=== PATIENT | male | born 1950 | race Hispanic/Latino ===

== ENCOUNTER → 2018-06-05 | Outpatient (CLI) | payer MEDICARE ==
--- NOTE | 2018-06-06 08:15 | Diagnostic Imaging Report ---
EXAM: Modified barium swallow INDICATION: Aspiration COMPARISON: None FINDINGS: This examination was conducted in conjunction with speech pathologist. Patient was given, by mouth, liquids and solids of various consistencies. No premature spillage to the vallecula or piriform sinus. Laryngeal penetration and aspiration was noted with thin liquid. Trace vallecular residue was noted after thin liquids. IMPRESSION: Laryngeal penetration and aspiration of the exam. Please see speech pathology report for detailed description and recommendations.> Signed by: Dr. Jonathan Jeffrey M.D. on 06/06/2018 8:11 AM
== END ==
LOC: DX 12:41
PROVIDERS: ATTEND Internal Medicine Critical Care Medicine
DX: J69.0 Pneumonitis due to inhalation of food and vomit (principal)
CPT/HCPCS: 74230

== ENCOUNTER 2018-07-08 11:43 | Outpatient (RCR) | payer MEDICARE, OTHER | END 2018-07-10 | LOC: ST 11:43 | PROVIDERS: ATTEND Internal Medicine Critical Care Medicine | DX: R13.13 Dysphagia, pharyngeal phase (principal); K21.9 Gastro-esophageal reflux disease without esophagitis | CPT/HCPCS: 92526 ×10; 92610; 97139; G8996 ×2; G8997 ×2 ==

== ENCOUNTER 2018-07-21 11:49 | Outpatient (RCR) | payer MEDICARE, OTHER ==
--- NOTE | 2018-07-20 11:23 | NUR ---
ST NOTE: Pt has apt today, moved apt to 07-21-18 at 1200, handoff to Fabiola Donaldson, [id number].
== END 2018-08-10 ==
LOC: ST 11:49
PROVIDERS: ATTEND Internal Medicine Critical Care Medicine
DX: T17.920A Food in respiratory tract, part unspecified causing asphyxiation, initial encounter (principal)
CPT/HCPCS: 97139

== ENCOUNTER → 2018-07-22 | Outpatient (CLI) | payer MEDICARE, OTHER ==
--- NOTE | 2018-07-22 14:36 | Diagnostic Imaging Report ---
ADDENDUM #1 RADIATION DETAILS: Radiation dose: 22.18 mGy Dose area product (DAP): 2.081 mGycm2 Signed by: Dr. Dex Conte MD on 08/12/2018 5:16 PM ORIGINAL REPORT EXAM: Modified barium swallow INDICATION: Dysphagia COMPARISON: Modified barium swallow 06/05/18. FINDINGS: This examination was conducted in conjunction with speech pathologist. Patient was given, by mouth, liquids of various consistencies with fluoroscopic sequences. Trace laryngeal penetration and aspiration was noted with thin liquids. Degree of aspiration is decreased compared to prior study on 06/05/18. IMPRESSION: Trace laryngeal penetration and aspiration as above, decreased compared to prior study. Please see speech pathology report for detailed description and recommendations. Signed by: Dr. Dex Conte MD on 07/22/2018 2:33 PM
== END ==
LOC: DX 11:56
PROVIDERS: ATTEND Internal Medicine Critical Care Medicine
DX: R13.13 Dysphagia, pharyngeal phase (principal); K21.9 Gastro-esophageal reflux disease without esophagitis
CPT/HCPCS: 74230; 92611; G8996; G8997; G8998

== ENCOUNTER 2019-09-22 16:24 | Observation (INO) | payer MEDICARE, OTHER ==
[~2019-09-22] VITALS: Ht 182.9 cm; Wt 94.3 kg
--- OUTSIDE RECORDS SUMMARY | 2019-09-22 16:27 | XMS REPORT ---
Author Author [facility] Address Unknown Phone Unavailable Care Team Providers Care And Drying Supervisor Cooking Casing Name Role Phone MIO CHAPMAN Unavailable Unavailable Problems This patient has no known problems. Allergies, Adverse Reactions, Alerts This patient has no known allergies or adverse reactions. Medications This patient has no known medications. Encounters Start Date/Time End Date/Time Encounter Type Admission Type Attending Clinicians Care Facility Care Department Encounter ID 2019-03-22 13:23:00 2019-03-22 13:23:00 Outpatient [id number] 2018-12-23 11:31:00 2018-12-23 11:31:00 [id number] Results Test Description Test Time Test Comments Text Results Atomic Results Result Comments MODIFIED [place] SWALLOW 2018-07-22 14:25:00 [place] [address] Patient Name: HOANG FRANCIS MR #: [id number] : 1950 Age/Sex: 67/M Req #: [id number] Adm Physician: Ordered by: MIO CHAPMAN MD Report #: [id number] Location: DX Room/Bed: Procedure: [id number] DX/MODIFIED BA. SWALLOW Exam Date: 07/22/18 Exam Time: 1231 REPORT STATUS: Signed ADDENDUM #1 RADIATION DETAILS: Radiation dose: 22.18 mGy Dose area product (DAP): 2.081 mGycm2 Signed by: Dr. Alex Duncan MD on 08/12/2018 5:16 PM ORIGINAL REPORT EXAM: Modified barium swallow INDICATION: Dysphagia COMPARISON: Modified barium swallow 06/05/18. FINDINGS: This examination was conducted in conjunction with speech pathologist. Patient was given, by mouth, liquids of various consistencies with fluoroscopic sequences. Trace laryngeal penetration and aspiration was noted with thin liquids. Degree of aspiration is decreased compared to prior study on 06/05/18. IMPRESSION: Trace laryngeal penetration and aspiration as above, decreased compared to prior study. Please see speech pathology report for detailed description and recommendations. Signed by: Dr. Alex Duncan MD on 07/22/2018 2:33 PM Dictated By: ALEX DUNCAN MD [id number] Transcribed By: DANY on 07/22/18 1431 COPY TO: MIO CHAPMAN MD MODIFIED BA. SWALLOW 2018-06-06 08:10:00 [place] [address] Patient Name: HOANG FRANCIS MR #: [id number] : 1950 Age/Sex: 67/M Req #: [id number] Adm Physician: Ordered by: MIO CHAPMAN MD Report #: [id number] Location: DX Room/Bed: Procedure: [id number] DX/MODIFIED BA. SWALLOW Exam Date: Exam Time: REPORT STATUS: Signed EXAM: Modified barium swallow INDICATION: Aspiration COMPARISON: None FINDINGS: This examination was conducted in conjunction with speech pathologist. Patient was given, by mouth, liquids and solids of various consistencies. No premature spillage to the vallecula or piriform sinus. Laryngeal penetration and aspiration was noted with thin liquid. Trace vallecular residue was noted after thin liquids. IMPRESSION: Laryngeal penetration and aspiration of the exam. Please see speech pathology report for detailed description and recommendations.> Signed by: Dr. Seymour Jeffrey M.D. on 06/06/2018 8:11 AM Dictated By: SEYMOUR JEFFREY MD 0 Transcribed By: DANY on 06/06/18810 COPY TO: MIO CHAPMAN MD
[2019-09-22] MEDS ORDERED: MECLIZINE HCL 12.5 MG TAB PO ONE (17:00)
[2019-09-22] MEDS ORDERED: ASPIRIN 81 MG CHEW TAB PO ONE ×2 (17:00→18:30)
[2019-09-22 17:25] LABS: BASOPHILS % 0.4 % (0.0-1.0); EOSINOPHILS # (AUTO) 0.3 (0.0-0.4); EOSINOPHILS % 5.1 % (0.0-6.0); HEMATOCRIT 41.8 % (38.2-49.6); LYMPHOCYTES # (AUTO) 1.1 (1.0-3.2); LYMPHOCYTES % 19.6 % (18.0-39.1); MEAN CORPUSCULAR HEMOGLOBIN 28.7 pg (28-32); MEAN CORPUSCULAR HGB CONC 33.5 g/dL (31-35); MEAN CORPUSCULAR VOLUME 85.8 fL (81-99); MONOCYTES # (AUTO) 0.4 (0.2-0.8); MONOCYTES % 7.2 % (4.4-11.3); NEUTROPHILS # (AUTO) 3.8 (2.1-6.9); NEUTROPHILS % 67.3 % (38.7-80.0); PLATELET COUNT 116 x10e3/uL (140-360); RED BLOOD COUNT 4.87 x10e6/uL (4.3-5.7); RED CELL DISTRIBUTION WIDTH 13.7 % (11.7-14.4)
[2019-09-22 17:34] LABS: INR 1.01; PROTHROMBIN TIME 13.9 seconds (11.9-14.5)
[2019-09-22 17:35] LABS: PARTIAL THROMBOPLASTIN TIME 34.5 seconds (23.8-35.5)
[2019-09-22 17:41] LABS: ALANINE AMINOTRANSFERASE 31 IU/L (0-55); ALBUMIN 3.9 g/dL (3.5-5.0); ALBUMIN/GLOBULIN RATIO 1.3 (0.8-2.0); ALKALINE PHOSPHATASE 73 IU/L (40-150); BLOOD UREA NITROGEN 25 mg/dL (7-26); BUN/CREATININE RATIO 22 (6-25); CALCIUM 9.3 mg/dL (8.4-10.2); CARBON DIOXIDE 21 mmol/L (22-29); CHLORIDE 104 mmol/L (98-107); CREATINE KINASE 108 IU/L (30-200); CREATININE, SERUM 1.15 mg/dL (0.72-1.25); EST GLOMERULAR FILTRATION RATE > 60 ML/MIN (60-); GLUCOSE 231 mg/dL (74-118); SODIUM 138 mmol/L (136-145)
--- NOTE | 2019-09-22 17:41 | Diagnostic Imaging Report ---
History:Headache, double vision Comparison studies: None Technique: Axial images were obtained from the skull base to the vertex. Coronal and sagittal images reconstructed from the axial data. Dose modulation, iterative reconstruction, and/or weight based adjustment of the mA/kV was utilized to reduce the radiation dose to as low as reasonably achievable. Intravenous contrast: None Findings: Scalp/skull: No abnormalities. Extra-axial spaces: No masses. No fluid collections. Brain sulci: Mildly prominent. Ventricles: Mild compensatory dilatation. No hydrocephalus. Parenchyma: Subtle hypodensities in the supratentorial white matter are small vessel ischemic changes. No masses, hemorrhage, acute or chronic cortical vascular insults. Sellar/suprasellar region: No abnormalities. Craniocervical junction: Patent foramen magnum. No Chiari 1 malformation. Incidental findings: Atherosclerotic calcifications in the carotid siphons and in the vertebral arteries. Mildly atrophic optic chiasm Impression: No acute abnormalities. Chronic findings: 1. Mild generalized volume loss. 2. Mild supratentorial white matter small vessel ischemic changes. Signed by: Dr. Juan Menendez M.D. on 09/22/2019 5:38 PM
--- NOTE | 2019-09-22 18:11 | Diagnostic Imaging Report ---
EXAMINATION: CHEST SINGLE (PORTABLE) INDICATION: Pain. COMPARISON: None FINDINGS: TUBES and LINES: None. LUNGS: Lungs are not well inflated. Bibasilar atelectasis. PLEURA: No pleural effusion or pneumothorax. HEART AND MEDIASTINUM: Cardiac size is mildly enlarged. There are atherosclerotic calcifications within the aorta. BONES AND SOFT TISSUES: No acute osseous lesion. Soft tissues are unremarkable. UPPER ABDOMEN: No free air under the diaphragm. IMPRESSION: Bibasilar atelectasis. Signed by: Dr. Justina Sandoval M.D. on 09/22/2019 6:08 PM
[2019-09-22] MEDS ORDERED: ONDANSETRON HCL INJ 2MG/ML 2ML 2 MG/ML VIAL IV PRN (18:30)
[2019-09-22] MEDS ORDERED: DEXTROSE 50% SYRINGE 50 ML IV PRN (18:30)
[2019-09-22] MEDS ORDERED: FOLIC ACID MDV 1 MG in SODIUM CHLORIDE 0.9% 50ML 50 ML IV SCH (20:00)
[2019-09-22] MEDS ORDERED: MECLIZINE HCL 12.5 MG TAB ONE (21:11)
[2019-09-22] MEDS: SODIUM CHLORIDE 0.9% 1000ML 1,000 ML IV SCH (21:15)
[2019-09-22 21:22] VITALS: BP 164/79
[2019-09-22 21:25] VITALS: BP 164/79
[2019-09-22] MEDS: INSULIN REGULAR, HUMAN 100 UNIT/1 ML 3ML VIAL SQ SCH (22:03)
[2019-09-23] VITALS (10 sets, daily range): BP systolic 113–160; BP diastolic 61–88
[2019-09-23] MEDS: SODIUM CHLORIDE 0.9% 1000ML 1,000 ML IV SCH ×2 (02:29→05:06)
[2019-09-23 05:01] LABS: BASOPHILS % 0.5 % (0.0-1.0); EOSINOPHILS # (AUTO) 0.3 (0.0-0.4); EOSINOPHILS % 5.7 % (0.0-6.0); HEMATOCRIT 42.1 % (38.2-49.6); LYMPHOCYTES # (AUTO) 1.5 (1.0-3.2); LYMPHOCYTES % 25.9 % (18.0-39.1); MEAN CORPUSCULAR HEMOGLOBIN 28.6 pg (28-32); MEAN CORPUSCULAR HGB CONC 33.3 g/dL (31-35); MEAN CORPUSCULAR VOLUME 85.9 fL (81-99); MONOCYTES # (AUTO) 0.5 (0.2-0.8); MONOCYTES % 9.1 % (4.4-11.3); NEUTROPHILS # (AUTO) 3.5 (2.1-6.9); NEUTROPHILS % 58.6 % (38.7-80.0); PLATELET COUNT 122 x10e3/uL (140-360); RED CELL DISTRIBUTION WIDTH 13.7 % (11.7-14.4)
[2019-09-23 05:23] LABS: ALANINE AMINOTRANSFERASE 29 IU/L (0-55); ALBUMIN 3.6 g/dL (3.5-5.0); ALBUMIN/GLOBULIN RATIO 1.2 (0.8-2.0); ALKALINE PHOSPHATASE 76 IU/L (40-150); ANION GAP 13.1 mmol/L (8-16); BLOOD UREA NITROGEN 23 mg/dL (7-26); BUN/CREATININE RATIO 21 (6-25); CALCIUM 9.4 mg/dL (8.4-10.2); CARBON DIOXIDE 25 mmol/L (22-29); CHLORIDE 106 mmol/L (98-107); CREATININE, SERUM 1.08 mg/dL (0.72-1.25); EST GLOMERULAR FILTRATION RATE > 60 ML/MIN (60-); GLUCOSE 147 mg/dL (74-118); PHOSPHORUS 3.5 MG/DL (2.3-4.7); POTASSIUM 4.1 mmol/L (3.5-5.1); SODIUM 140 mmol/L (136-145)
[2019-09-23 06:06] LABS: CREATINE KINASE MB 4.3 ng/mL (0-5.0)
--- NOTE | 2019-09-23 07:00 | NUR ---
BEDSIDE SHIFT REPORT RECEIVED FROM THE PREVIOUS SHIFT RN. EDUCATED PATIENT ABOUT FALL PRECAUTIONS. CALL LIGHT IN EASY REACH. INSTRUCTED PATIENT TO USE CALL LIGHT FOR ANY NEEDS. PATIENT VERBALIZE UNDERSTANDING. BED IS LOW, WHEELS LOCKED, SIDE RAILS UP X2 FOR SAFETY. PT DENIES NEEDS AT THIS TIME
[2019-09-23] MEDS: INSULIN REGULAR, HUMAN 100 UNIT/1 ML 3ML VIAL SQ SCH ×4 (07:30→21:00)
[2019-09-23 07:54] LABS: PLATELET ESTIMATE MODERATELY DECREASED
[2019-09-23 07:55] LABS: PLATELET MORPHOLOGY COMMENT FEW LARGE
[2019-09-23] MEDS: ASPIRIN 81 MG ENTERIC COATED PO SCH (09:17)
[2019-09-23] MEDS ORDERED: FENOFIBRATE145 MG PO (09:39)
[2019-09-23] MEDS ORDERED: LOSARTAN POTASS25 MG PO (09:41)
[2019-09-23] MEDS ORDERED: HYDROCHLOROTHIA25 MG PO (09:41)
[2019-09-23] MEDS ORDERED: VICTOZA 2-0.6 MG/0.1 SQ (09:41)
[2019-09-23] MEDS ORDERED: GABAPENTIN300 MG PO (09:42)
[2019-09-23] MEDS ORDERED: FLOMAX0.4 MG PO (09:42)
[2019-09-23] MEDS ORDERED: HUMULIN N100 UNITS/ SQ (09:44)
[2019-09-23] MEDS ORDERED: NOVOLIN N100 UNIT/1 SQ (09:44)
[2019-09-23] MEDS ORDERED: IPRATROPIU0.2 MG/1 M NEB (09:45)
[2019-09-23] MEDS ORDERED: IPRATROPIUM BROMIDE 0.02% 2.5 ML NEB NEB PRN (10:30)
[2019-09-23] MEDS: GABAPENTIN 300 MG CAP PO SCH (13:28)
[2019-09-23] MEDS: TAMSULOSIN HCL 0.4 MG CAP PO SCH (13:28)
[2019-09-23] MEDS: FENOFIBRATE 145 MG TAB PO SCH (13:30)
[2019-09-23 14:39] LABS: CREATINE KINASE 90 IU/L (30-200)
[2019-09-23 14:55] LABS: CREATINE KINASE MB < 1.00 ng/mL (0-4.3)
--- NOTE | 2019-09-23 15:20 | Diagnostic Imaging Report ---
EXAMINATION: MRI of the brain and orbits without contrast. HISTORY:Headaches, diplopia COMPARISON:Head CT 09/22/2019 TECHNIQUE: Brain: Sagittal T2; axial DWI, FLAIR, T1-IR. Orbits: Axial and coronal T1 coronal T2. High resolution coronal T2FS and STIR BRAIN MRI FINDINGS: Brain signal intensity: Few scattered and mildly confluent periventricular and colunga radiata as well as pontine white matter T2 and FLAIR hyperintense foci, most likely nonspecific chronic microvascular disc changes. Tiny chronic lacunar infarct in the head of the right caudate nucleus Vessels: Expected flow voids present in the major arteries and dural sinuses. Possible flow void versus CSF pulsation artifact within the right sylvian fissure is noted. Brain volume: Within normal limits for age. Ventricles: Normal size, shape, and position. Craniocervical junction: Normal. Paranasal and mastoid sinuses: Clear ORBITS MRI FINDINGS: Globes: Normal Optic nerves: Normal size. Small optic chiasm, likely age-related. Orbital fat: Normal. Extraocular muscles: Normal. Preseptal soft tissues: Normal. Lacrimal glands: Normal. Pituitary gland: No enlargement. Cavernous sinuses: Normal. Superior ophthalmic veins: No enlargement. IMPRESSION: 1. Mildly matter chronic microvascular ischemic changes. 2. Small chronic lacunar infarct in the head of the right common renal pelvis. 3. No orbital abnormalities. Signed by: Dr. Shahida Floyd M.D. on 09/23/2019 3:17 PM
[2019-09-23] MEDS: NPH, HUMAN INSULIN ISOPHANE 100 UNIT/1 ML 3ML VIAL SQ SCH (21:00)
[2019-09-24] VITALS (9 sets, daily range): BP systolic 144–169; BP diastolic 69–92
--- NOTE | 2019-09-24 06:24 | Consultation ---
DATE OF CONSULTATION: 09/24/2019 HISTORY OF PRESENT ILLNESS: The patient is a 69-year-old male, admitted to the hospital with diplopia and left temporal headache. He says he feels better today, but still has some pain in the left hoahaoism area. There was concern for temporal arteritis. Erythrocyte sedimentation rate is normal. PAST MEDICAL HISTORY: Significant for diabetes, hyperlipidemia, hypertension, and osteoarthritis. PAST SURGICAL HISTORY: He has not had previous surgeries. MEDICATIONS: Listed in the chart. ALLERGIES: HE HAS ALLERGY TO IODINE. FAMILY HISTORY: Noncontributory. SOCIAL HISTORY: The patient does not smoke cigarettes or drink alcohol. REVIEW OF SYSTEMS: As stated above otherwise was negative. PHYSICAL EXAMINATION: GENERAL: The patient is awake and alert, in no distress. VITAL SIGNS: Normal. HEENT: Unremarkable. Sclerae are nonicteric. Temporal pulses are palpable. There is no tenderness. NECK: He has no masses. No bruits. LUNGS: Equal breath sounds are clear bilaterally. CARDIAC: Regular rate and rhythm. ABDOMEN: Soft with no tenderness. No mass. EXTREMITIES: Have no edema. NEUROLOGIC: Grossly intact. ASSESSMENT: 69-year-old male with periorbital pain, left temporal headache with diplopia, concern for temporal arteritis. PLAN: Left temporal artery biopsy to be done later today. Procedure was explained to the patient. Thank you for asking me to see Mr. Donaldson. MD HERI Prather/MODL /[id number]
[2019-09-24] MEDS: INSULIN REGULAR, HUMAN 100 UNIT/1 ML 3ML VIAL SQ SCH ×4 (07:30→21:11)
[2019-09-24] MEDS: NPH, HUMAN INSULIN ISOPHANE 100 UNIT/1 ML 3ML VIAL SQ SCH ×2 (09:00→21:10)
--- NOTE | 2019-09-24 12:05 | NUR ---
out of town. Paged to clarify of consult. Waiting call back Addendum: 09/24/19 at 1450 by JAMILA CLIFFORD RN
--- NOTE | 2019-09-24 12:20 | NUR ---
Taken for procedure. No s/s of acute distress noted.
[2019-09-24] MEDS ORDERED: BUPIVACAINE 0.25% 30ML SDV INJ ONE (12:29)
[2019-09-24] MEDS ORDERED: TRAMADOL HCL 50 MG TAB PO PRN (13:15)
--- NOTE | 2019-09-24 14:20 | NUR ---
Back from procedure (s/p biopsy) dressing to left forehead scant dry blood noted.
[2019-09-24] MEDS: ASPIRIN 81 MG ENTERIC COATED PO SCH (14:44)
[2019-09-24] MEDS: FENOFIBRATE 145 MG TAB PO SCH (14:44)
[2019-09-24] MEDS: TAMSULOSIN HCL 0.4 MG CAP PO SCH (14:44)
[2019-09-24] MEDS: GABAPENTIN 300 MG CAP PO SCH (14:44)
--- NOTE | 2019-09-24 14:50 | NUR ---
aware is out of town. See orders
[2019-09-24] MEDS ORDERED: FENTANYL CITRATE/PF 100MCG/2 ML INJ ONE (15:07)
[2019-09-24] MEDS ORDERED: MIDAZOLAM HCL 2 MG/2 ML VIAL ONE (15:07)
[2019-09-24] MEDS ORDERED: SEVOFLURANE INHAL SOLN 250 ML PEN BTL ONE (15:09)
[2019-09-24] MEDS ORDERED: ONDANSETRON HCL INJ 2MG/ML 2ML 2 MG/ML VIAL ONE (15:09)
[2019-09-24] MEDS ORDERED: DEXAMETHASONE SOD PHOS INJ 4 MG/ML VIAL ONE (15:09)
[2019-09-24] MEDS ORDERED: LIDOCAINE HCL 2% LOCAL INJ 5 ML SDV VIAL INJ ONE (15:09)
[2019-09-24] MEDS ORDERED: PROPOFOL IV EMULSION 10 MG/ML 20 ML VIAL ONE (15:09)
[2019-09-24] MEDS ORDERED: ONDANSETRON HCL 4 MG ORAL DISINTEGRATING TAB PO PRN (17:15)
--- NOTE | 2019-09-24 17:55 | NUR ---
aware of consult
--- NOTE | 2019-09-24 19:00 | NUR ---
RECEIVED PATIENT IN BEDSIDE SHIFT REPORT. PATIENT RESTING IN BED AT THIS TIME. NO PAIN REPORTED. FAMILY AT BEDSIDE. NO S&S OF DISTRESS NOTED. STERI STRIPS TO L YARSANISM C/D/I. BED LOCKED IN LOWEST POSITION, SIDE RIALS UPX2, CALL LIGHT IN REACH.
--- NOTE | 2019-09-24 19:11 | NUR ---
Report given to oncoming nurse of patient's status. No s/s of acute distress noted. Side rails upx2, call light within reach, family at bedside.
--- NOTE | 2019-09-24 19:50 | Operative Report ---
DATE OF PROCEDURE: 09/24/2019 SURGEON: Kenrick Bingham MD PREOPERATIVE DIAGNOSIS: Headache, rule out temporal arteritis. POSTOPERATIVE DIAGNOSIS: Headache, rule out temporal arteritis. PROCEDURE: Left superficial temporal artery biopsy. SUPERINTENDENT SERVICE: None. ANESTHESIA: General. INDICATIONS AND FINDINGS: The patient is a 69-year-old male, who complains of diplopia and left temporal headache. Surgery, the patient had approximately 2.5 cm segment of left superficial temporal artery, which was excised grossly appeared to be normal. TECHNIQUE: After adequate general anesthesia, the patient in supine position, the left roman catholic area was prepped and draped in sterile fashion with ChloraPrep solution. Incision was made over the artery, carried down through subcutaneous tissue to the artery identified. The artery was dissected free about 2.5 cm segment of the artery was excised with ends of the artery ligated with 3-0 Vicryl. Hemostasis was seen to be adequate. The wound was then closed with 3-0 Vicryl subcutaneous tissue and 4-0 Vicryl subcuticular to the skin. Steri-Strips were applied to the wound. The patient tolerated the procedure well. Estimated blood loss was less than 5 mL. There were no complications. All counts were correct. The patient was taken to the recovery room in satisfactory condition. Kenrick Bingham MD DWG/MODL /[id number]
--- NOTE | 2019-09-24 20:10 | NUR ---
glucose check at bedtime was 432, recheck was 417. per order, dr. coulter was notified, order to cover with sliding scale previously ordered and no need to recheck blood glucose. patient is stable in bed with family in room. no current complaints noted.
[2019-09-25] MEDS ORDERED: HYDRALAZINE HCL 25 MG TAB PO PRN
[2019-09-25] MEDS ORDERED: NIFEDIPINE CR 30 MG TAB PO ONE
--- NOTE | 2019-09-25 00:03 | NUR ---
PATIENT WITH ELEVATED BLOOD PRESSURE OF 177/[address] QUINN NOTIFIED AND NEW ORDERS RECIEVED AND ENTERED.
[2019-09-25 01:02] VITALS: BP 177/94
[2019-09-25] MEDS: NIFEDIPINE CR 30 MG TAB PO SCH ×2 (05:57→09:04)
[2019-09-25 06:08] VITALS: BP 152/74
--- NOTE | 2019-09-25 07:05 | NUR ---
bedside shift report received from PM RN; pt awake, alert, no signs of distress. in stable condition. will continue to monitor.
[2019-09-25 07:33] VITALS: BP 152/74
[2019-09-25 08:00] VITALS: BP 142/73
[2019-09-25] MEDS: NPH, HUMAN INSULIN ISOPHANE 100 UNIT/1 ML 3ML VIAL SQ SCH (08:37)
[2019-09-25] MEDS: INSULIN REGULAR, HUMAN 100 UNIT/1 ML 3ML VIAL SQ SCH ×3 (08:37→16:30)
[2019-09-25] MEDS: ASPIRIN 81 MG ENTERIC COATED PO SCH (09:03)
[2019-09-25] MEDS: GABAPENTIN 300 MG CAP PO SCH (09:04)
[2019-09-25] MEDS: FENOFIBRATE 145 MG TAB PO SCH (09:04)
[2019-09-25] MEDS: TAMSULOSIN HCL 0.4 MG CAP PO SCH (09:04)
--- NOTE | 2019-09-25 11:15 | NUR ---
paged Dr. Cespedes; left voicemail. awaiting callback.
[2019-09-25 11:36] VITALS: BP 125/60
[2019-09-25] MEDS ORDERED: METHYLPREDNISOLONE SOD SUCC 125 MG/2ML VIAL IV ONE (13:00)
[2019-09-25] MEDS ORDERED: DIPHENHYDRAMINE HCL INJ 50 MG/ML VIAL IV ONE (13:00)
[2019-09-25] MEDS ORDERED: INSULIN GLARGINE 100 UNITS/ML VIAL SQ ONE (13:30)
[2019-09-25 15:58] VITALS: BP 127/61
--- NOTE | 2019-09-25 17:02 | Diagnostic Imaging Report ---
Exam: CTA brain with and without contrast History:69-year-old male with headache and blurry vision, Comparison studies:Brain MRI without contrast 09/23/2019; CT brain without contrast 09/22/2019 Technique: Axial images were obtained from the skull base to the vertex. Coronal and sagittal images reconstructed from the axial data. Dose modulation, iterative reconstruction, and/or weight based adjustment of the mA/kV was utilized to reduce the radiation dose to as low as reasonably achievable. Intravenous contrast: 100 cc of Omnipaque 300. Findings: Right internal carotid artery, anterior cerebral and middle cerebral arteries: Patent. Moderate nonstenosing atherosclerosis within the carotid siphons. The A1 segment of the right anterior cerebral artery is hypoplastic, consistent with normal variant anatomy. No large vascular occlusion. Left internal carotid artery, anterior cerebral and middle cerebral arteries: Patent. Moderate nonstenosing atherosclerosis within the carotid siphons. No large vascular occlusion. Right vertebral artery: Patent. No abnormalities. Left vertebral artery: Patent. Mild atherosclerosis within the proximal V4 segment otherwise no abnormalities. Basilar artery: Patent. No abnormalities. Posterior cerebral arteries: Patent. No abnormalities. Anatomical variants: Acom: Not visualized. Pcoms: Patent. The left posterior communicating artery is diminutive in appearance compared to the right. Vertebral arteries: Right dominant. Noncontrast brain CT: Findings on the brain CT are unchanged from previous examination on 09/22/2019 with no acute intracranial abnormality and unchanged mild generalized volume loss and mild chronic small vessel ischemic changes. IMPRESSION: No acute vascular abnormalities. Additional findings: Moderate nonstenosing atherosclerosis within the bilateral carotid siphons. This preliminary report was issued by Dr. Luigi Carter M.D. neuroradiology fellow at 1704 hours on 09/25/2019. Signed by: DR Filiberto Thomason M.D. on 09/25/2019 8:18 PM
[2019-09-25] MEDS ORDERED: SODIUM CHLORIDE 0.9% 100 ML ONE (18:18)
[2019-09-25] MEDS ORDERED: IOPAMIDOL 370 MG/ML 200 ML INFUS..BTL INJ ONE (18:19)
[2019-09-25] MEDS ORDERED: ULTRAM50 MG PO (18:35)
[2019-09-25] MEDS ORDERED: NIFEDIPINE ER30 M1 PO (18:35)
[2019-09-25] MEDS ORDERED: NPH, HUMAN INSULIN ISOPHANE 100 UNIT/1 ML 3ML VIAL SQ SCH (21:00)
[2019-09-26] MEDS ORDERED: LIRAGLUTIDE 1.2 MG SC SCH (09:00)
[2019-09-26] MEDS ORDERED: NPH, HUMAN INSULIN ISOPHANE 100 UNIT/1 ML 3ML VIAL SQ SCH (09:00)
--- NOTE | 2019-09-26 17:33 | Consultation ---
DATE OF CONSULTATION: 09/25/2019 HISTORY OF PRESENT ILLNESS: The patient is a 69-year-old male with history of diabetes, hypertension, multiple cardiovascular risk factors, who was admitted few days back with dizziness and double vision when looking through both eyes, that changes to single vision while looking through one eye. No other lateralizing neurologic symptoms are reported. The patient also apparently reported some headache, which is indeed resolved now, but at that time, a few days back, it was decided he might have temporal arteritis and he had a biopsy, which is pending at this time of left temporal artery. The patient denies any headache or pain in the temporal area or tenderness. At this point, there are no changes in vision and no other symptoms to suggest temporal arteritis. REVIEW OF SYSTEMS: A 14-point review of systems is negative otherwise. PAST MEDICAL HISTORY: Diabetes. MEDICATIONS: Please refer to the notes. ALLERGIES: NO KNOWN DRUG ALLERGIES. SOCIAL HISTORY: None relating to, there is no alcohol abuse. FAMILY HISTORY: Unremarkable and noncontributory. PAST SURGICAL HISTORY: Had a left temporal artery biopsy. PHYSICAL EXAMINATION: VITAL SIGNS: Temperature of 98, respiratory rate 16, pulse rate 80, blood pressure 121/60. HEAD AND NECK: Bandage on the site of the biopsy on the left temporal area is noted. No tenderness is noted on palpation of the temporal areas bilaterally or anywhere in the head. No neck stiffness. LUNGS: Good air entry. ABDOMEN: Soft. EXTREMITIES: Good pulses. NEUROLOGIC: Alert. Follows commands. Normal mental status examination. Cranial nerve examination is normal except for limited left lateral gaze, which is incomplete. No facial weakness. Uvula midline. Gag positive. Tongue midline. Shoulder shrug is normal. Motor is 5/5 in all extremities. Sensory normal to all modalities. Vision is 20/20 bilaterally. Fundi could not be visualized. Visual walsh are full to confrontation. Pupils are reactive bilaterally and equal to light. Deep tendon reflexes are 2. Plantars are flexor. Decreased vibration and proprioception distally in the upper and lower extremities is noted. Gait is normal. IMAGING: His MRI of the brain does not show any acute changes. Biopsy is pending of the left temporal artery. CTA of the head done today also does not show any abnormalities. Carotid Dopplers with some mild atherosclerotic changes. He has also . ASSESSMENT: The patient is admitted with dizziness and vertigo, most likely of peripheral origin. 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 He does not have symptoms of giant cell arteritis or signs by examination. Probably his temporal artery biopsy was not necessary. Anyway, he is not even on steroids. If temporal arthritis is concerned, then I need to keep him on steroids until the biopsy rules out arthritis. Suggest continuing with aspirin and high-dose statins, control diabetes, blood pressure, and cardiovascular risk factors. He is to follow up with Ophthalmology. Neuro dent, the patient can be discharged to follow up on his biopsy and decide about what to do with the steroids as an outpatient. A total of 70 minutes was spent today in [id number] care today on the patient with more than half the time spent on counseling and coordination of care including discussions with the patient, referring physician, and nurses, multiple calls to nursing staff as well as Radiology staff about the imaging. Magali Cespedes MD AM/MEME /[id number]
== END 2019-09-25 18:51 | disposition home or self-care (01) ==
LOC: ER 16:24 → ERHOLD 18:34 → MED/SURG2 21:27
PROVIDERS: ADMIT Internal Medicine; ATTEND Internal Medicine
DX: H81.399 Other peripheral vertigo, unspecified ear (principal); H53.2 Diplopia; H49.22 Sixth [abducent] nerve palsy, left eye; I10 Essential (primary) hypertension; E78.5 Hyperlipidemia, unspecified; E11.42 Type 2 diabetes mellitus with diabetic polyneuropathy; R51 Headache; Z90.49 Acquired absence of other specified parts of digestive tract; Z91.048 Other nonmedicinal substance allergy status; M19.90 Unspecified osteoarthritis, unspecified site; Z79.4 Long term (current) use of insulin
CPT/HCPCS: 36415 ×4; 37609; 70450; 70496; 70540; 70551; 71045; 80053 ×2; 82550 ×2; 82553 ×2; 82948 ×3; 83735; 83880; 84100; 84484 ×2; 85025 ×2; 85610; 85651; 85730; 88304; 93005; 93306; 93880; 96360; 96372; 99284; G0378 ×4; J1100; J1200; J1815; J1817 ×3; J2001; J2250; J2405; J2704; J2930; J3010; J7030 ×2; J7050; J8597; Q9967; 88305

== ENCOUNTER 2021-05-28 09:23 | Emergency (ER) | payer MEDICARE ==
[~2021-05-28] VITALS: Ht 182.9 cm; Wt 97.1 kg
[~2021-05-28 09:23] MED LIST: FENOFIBRATE145 MG PO; FLOMAX0.4 MG PO; GABAPENTIN300 MG PO; HUMULIN N100 UNITS/ SQ; HYDROCHLOROTHIA25 MG PO; IPRATROPIU0.2 MG/1 M NEB; LOSARTAN POTASS25 MG PO; NIFEDIPINE ER30 M1 PO; NOVOLIN N100 UNIT/1 SQ; ULTRAM50 MG PO; VICTOZA 2-0.6 MG/0.1 SQ
[2021-05-28 10:12] LABS: STREPTOCOCCUS GRP A ANTIGEN NEGATIVE (NEGATIVE)
[2021-05-28 10:24] LABS: BASOPHILS % 0.6 % (0.0-1.0); EOSINOPHILS # (AUTO) 0.6 (0.0-0.4); EOSINOPHILS % 8.9 % (0.0-6.0); HEMATOCRIT 40.8 % (38.2-49.6); HEMOGLOBIN 13.3 g/dL (14.0-18.0); LYMPHOCYTES # (AUTO) 0.9 (1.0-3.2); LYMPHOCYTES % 13.8 % (18.0-39.1); MEAN CORPUSCULAR HEMOGLOBIN 28.5 pg (28-32); MEAN CORPUSCULAR HGB CONC 32.6 g/dL (31-35); MEAN CORPUSCULAR VOLUME 87.4 fL (81-99); MONOCYTES # (AUTO) 0.5 (0.2-0.8); MONOCYTES % 7.8 % (4.4-11.3); NEUTROPHILS # (AUTO) 4.3 (2.1-6.9); NEUTROPHILS % 68.6 % (38.7-80.0); PLATELET COUNT 116 x10e3/uL (140-360); RED BLOOD COUNT 4.67 x10e6/uL (4.3-5.7); RED CELL DISTRIBUTION WIDTH 13.2 % (11.7-14.4)
[2021-05-28 10:29] LABS: ALANINE AMINOTRANSFERASE 25 IU/L (0-55); ALBUMIN 3.8 g/dL (3.5-5.0); ALBUMIN/GLOBULIN RATIO 1.1 (0.8-2.0); ALKALINE PHOSPHATASE 72 IU/L (40-150); ANION GAP 15.2 mmol/L (8-16); BLOOD UREA NITROGEN 16 mg/dL (7-26); BUN/CREATININE RATIO 14 (6-25); CALCIUM 9.1 mg/dL (8.4-10.2); CARBON DIOXIDE 22 mmol/L (22-29); CHLORIDE 104 mmol/L (98-107); CREATINE KINASE 199 IU/L (30-200); CREATININE, SERUM 1.15 mg/dL (0.72-1.25); EST GLOMERULAR FILTRATION RATE 63 ML/MIN (60-); GLUCOSE 163 mg/dL (74-118); POTASSIUM 4.2 mmol/L (3.5-5.1); SODIUM 137 mmol/L (136-145)
[2021-05-28 10:50] LABS: INFLUENZAE A&B ANTIGEN (RAPID) NEGATIVE (NEGATIVE)
[2021-05-28 11:26] VITALS: BP 138/84
== END 2021-05-28 11:28 | disposition home or self-care (01) ==
LOC: ER 09:33
DX: R05.9 Cough, unspecified (principal); J40 Bronchitis, not specified as acute or chronic; I51.7 Cardiomegaly; I10 Essential (primary) hypertension; E11.65 Type 2 diabetes mellitus with hyperglycemia; E78.5 Hyperlipidemia, unspecified; Z20.822 Contact with and (suspected) exposure to COVID-19
CPT/HCPCS: 36415; 71045; 80053; 82550; 82553; 83518; 83880; 84484; 85025; 87070; 87400; 93005; 99284; U0002

== ENCOUNTER 2021-11-03 13:02 | Inpatient (IN) | payer MEDICARE ==
[~2021-11-03] VITALS: Ht 182.9 cm; Wt 97.1 kg
[2021-11-03 13:33] LABS: BASOPHILS % 0.4 % (0.0-1.0); EOSINOPHILS # (AUTO) 0.3 (0.0-0.4); EOSINOPHILS % 4.4 % (0.0-6.0); HEMATOCRIT 41.4 % (38.2-49.6); HEMOGLOBIN 13.9 g/dL (14.0-18.0); LYMPHOCYTES # (AUTO) 1.2 (1.0-3.2); LYMPHOCYTES % 16.9 % (18.0-39.1); MEAN CORPUSCULAR HGB CONC 33.6 g/dL (31-35); MEAN CORPUSCULAR VOLUME 86.4 fL (81-99); MONOCYTES # (AUTO) 0.5 (0.2-0.8); MONOCYTES % 6.7 % (4.4-11.3); NEUTROPHILS % 71.2 % (38.7-80.0); PLATELET COUNT 127 x10e3/uL (140-360); RED BLOOD COUNT 4.79 x10e6/uL (4.3-5.7); RED CELL DISTRIBUTION WIDTH 13.2 % (11.7-14.4)
[2021-11-03 13:44] LABS: INR 0.97; PROTHROMBIN TIME 13.8 seconds (11.9-14.5)
[2021-11-03 13:45] LABS: PARTIAL THROMBOPLASTIN TIME 24.6 seconds (23.8-35.5)
[2021-11-03 13:50] LABS: ALBUMIN 3.7 g/dL (3.5-5.0); ALBUMIN/GLOBULIN RATIO 1.1 (0.8-2.0); ANION GAP 13.5 mmol/L (8-16); CREATININE, SERUM 1.4 mg/dL (0.72-1.25); POTASSIUM 4.5 mmol/L (3.5-5.1)
[2021-11-03 14:09] LABS: CREATINE KINASE MB 2.2 ng/mL (0-5.0); THYROID STIMULATING HORMONE 0.798 uIU/mL (0.350-4.940)
[2021-11-03] MEDS ORDERED: ASPIRIN 81 MG CHEW TAB PO STA (14:42)
[2021-11-03] MEDS ORDERED: ONDANSETRON HCL INJ 2MG/ML 2ML 2 MG/ML VIAL IV PRN (15:15)
[2021-11-03] MEDS ORDERED: DEXTROSE 50% SYRINGE 50 ML IV PRN (15:15)
[2021-11-03] MEDS ORDERED: TRAMADOL HCL 50 MG TAB PO PRN (16:30)
[2021-11-03] MEDS ORDERED: IPRATROPIUM BROMIDE 0.02% 2.5 ML NEB NEB PRN (16:30)
[2021-11-03] MEDS: INSULIN LISPRO 100 UNIT/1 ML 3ML VIAL SQ SCH ×2 (16:30→21:00)
[2021-11-03 18:03] VITALS: BP 156/92
[2021-11-03] MEDS ORDERED: TRELEGY ELLIPT1 EACH INH (18:43)
[2021-11-03] MEDS ORDERED: LOSARTAN POTASS25 MG PO (18:43)
[2021-11-03] MEDS ORDERED: METOPROLOL TART50 MG PO (18:43)
[2021-11-03] MEDS ORDERED: ALTOPREV40 MG PO (18:43)
[2021-11-03] MEDS ORDERED: PREDNISONE5 MG PO (18:43)
[2021-11-03 20:00] VITALS: BP 150/68
[2021-11-03 20:22] LABS: CREATINE KINASE MB 2.2 ng/mL (0-5.0)
[2021-11-03] MEDS ORDERED: NPH, HUMAN INSULIN ISOPHANE 100 UNIT/1 ML 3ML VIAL SQ SCH (21:00)
[2021-11-03] MEDS: GABAPENTIN 300 MG CAP PO SCH (22:45)
[2021-11-04] VITALS: BP 134/69
[2021-11-04 04:00] VITALS: BP 120/77
[2021-11-04 06:52] LABS: BASOPHILS % 0.6 % (0.0-1.0); EOSINOPHILS # (AUTO) 0.4 (0.0-0.4); EOSINOPHILS % 6.4 % (0.0-6.0); HEMATOCRIT 41.5 % (38.2-49.6); HEMOGLOBIN 13.8 g/dL (14.0-18.0); LYMPHOCYTES # (AUTO) 1.4 (1.0-3.2); LYMPHOCYTES % 22.7 % (18.0-39.1); MEAN CORPUSCULAR HEMOGLOBIN 29.1 pg (28-32); MEAN CORPUSCULAR HGB CONC 33.3 g/dL (31-35); MEAN CORPUSCULAR VOLUME 87.6 fL (81-99); MONOCYTES # (AUTO) 0.6 (0.2-0.8); MONOCYTES % 9.2 % (4.4-11.3); NEUTROPHILS # (AUTO) 3.8 (2.1-6.9); NEUTROPHILS % 60.8 % (38.7-80.0); PLATELET COUNT 102 x10e3/uL (140-360); RED BLOOD COUNT 4.74 x10e6/uL (4.3-5.7); RED CELL DISTRIBUTION WIDTH 13.2 % (11.7-14.4)
[2021-11-04] MEDS ORDERED: FAMOTIDINE 20 MG TAB PO SCH (07:30)
[2021-11-04] MEDS: INSULIN LISPRO 100 UNIT/1 ML 3ML VIAL SQ SCH (07:30)
[2021-11-04 07:48] VITALS: BP 111/90
[2021-11-04 07:49] VITALS: BP 111/90
[2021-11-04 08:19] LABS: ALBUMIN 3.3 g/dL (3.5-5.0); ALBUMIN/GLOBULIN RATIO 1.1 (0.8-2.0); ANION GAP 12.1 mmol/L (8-16); CALCIUM 8.4 mg/dL (8.4-10.2); CHOL/HDL RATIO 4.5 (3.9-4.7); CREATININE, SERUM 1.07 mg/dL (0.72-1.25); POTASSIUM 4.1 mmol/L (3.5-5.1)
[2021-11-04 08:46] LABS: CREATINE KINASE MB 1.5 ng/mL (0-5.0)
[2021-11-04] MEDS ORDERED: GABAPENTIN 300 MG CAP PO SCH (09:00)
[2021-11-04] MEDS ORDERED: NIFEDIPINE CR 30 MG TAB PO SCH (09:00)
[2021-11-04] MEDS ORDERED: LOSARTAN POTASSIUM 25 MG TAB PO SCH (09:00)
[2021-11-04] MEDS ORDERED: FENOFIBRATE 145 MG TAB PO SCH (09:00)
[2021-11-04] MEDS ORDERED: TAMSULOSIN HCL 0.4 MG CAP PO SCH (09:00)
[2021-11-04] MEDS ORDERED: ASPIRIN 81 MG ENTERIC COATED PO SCH (09:00)
[2021-11-04] MEDS: GABAPENTIN 300 MG CAP PO SCH (09:08)
[2021-11-04] MEDS ORDERED: GABAPENTIN300 MG PO (09:58)
[2021-11-04] MEDS ORDERED: ENOXAPARIN SOD INJ 40 MG/0.4 ML SYR SC SCH (17:00)
== END 2021-11-04 10:28 | disposition home or self-care (01) | DRG 74 ==
LOC: ER 13:50 → ERHOLD 15:11 → MED/SURG3 17:48
PROVIDERS: ADMIT Internal Medicine; ATTEND Internal Medicine
DX: E11.42 Type 2 diabetes mellitus with diabetic polyneuropathy (principal); N17.9 Acute kidney failure, unspecified; E11.65 Type 2 diabetes mellitus with hyperglycemia; I10 Essential (primary) hypertension; E78.1 Pure hyperglyceridemia; Z20.822 Contact with and (suspected) exposure to COVID-19; E78.5 Hyperlipidemia, unspecified
CPT/HCPCS: 36415; 70450; 70551; 71045; 80053; 80061; 82550; 82553; 82948; 83036; 83735; 84443; 84484; 85025; 85610; 85730; 93005; 93880; 94799; 99284; U0002

== ENCOUNTER 2022-08-21 19:40 | Emergency (ER) | payer MEDICARE, OTHER ==
[~2022-08-21] VITALS: Ht 182.9 cm; Wt 97.1 kg
[~2022-08-21 19:40] MED LIST changes: +ALTOPREV40 MG PO; +METOPROLOL TART50 MG PO; +PREDNISONE5 MG PO; +TRELEGY ELLIPT1 EACH INH
[2022-08-21] MEDS ORDERED: TRAMADOL HCL 50 MG TAB PO STA (20:07)
[2022-08-21] MEDS ORDERED: ULTRAM 50MG50 MG PO (21:54)
[2022-08-21 21:58] VITALS: BP 152/85
== END 2022-08-21 21:56 | disposition home or self-care (01) ==
LOC: ER 20:08
DX: S00.83XA Contusion of other part of head, initial encounter (principal); M54.2 Cervicalgia; M25.512 Pain in left shoulder; V43.52XA Car driver injured in collision with other type car in traffic accident, initial encounter; Y92.488 Other paved roadways as the place of occurrence of the external cause; I10 Essential (primary) hypertension; E11.9 Type 2 diabetes mellitus without complications; E78.5 Hyperlipidemia, unspecified
CPT/HCPCS: 70450; 71250; 72125; 99283

== ENCOUNTER 2024-06-23 17:35 | Emergency (ER) | payer MEDICARE ==
[~2024-06-23] VITALS: Ht 182.9 cm; Wt 90.7 kg
[~2024-06-23 17:35] MED LIST changes: +METHOCARBAMOL500 MG PO; +ULTRAM 50MG50 MG PO
[2024-06-23] MEDS ORDERED: LIDOCAINE HCL 1% LOCAL INJ 20 ML VIAL INJ STA (18:14)
[2024-06-23 18:20] VITALS: TEMP 97.6
[2024-06-23] MEDS: KETOROLAC TROMETHAMINE 60 MG/2 ML VIAL IM STA (19:51)
[2024-06-23 20:19] LABS: CLARITY,URINE CLEAR (CLEAR); COLOR,URINE YELLOW (YELLOW); GLUCOSE, URINE 1+ (NEGATIVE); KETONES,URINE TRACE (NEGATIVE); LEUKOCYTE ESTERASE ,URINE NEGATIVE (NEGATIVE); NITRITE,URINE NEGATIVE (NEGATIVE); PH,URINE 5.5 (5 - 7); PROTEIN,URINE DIPSTICK NEGATIVE (NEGATIVE)
[2024-06-23 20:20] LABS: BILIRUBIN,URINE NEGATIVE (NEGATIVE); URINE UROBILINOGEN 0.2 mg/dL (0.2 - 1)
[2024-06-23 20:24] LABS: RBC,URINE 0-5 /HPF (0-5); WBC,URINE (MAN) 0-5 /HPF (0-5)
[2024-06-23] MEDS ORDERED: ULTRAM 50MG50 MG PO (21:04)
[2024-06-23 21:34] VITALS: PULSE 79; RESP 17
[2024-06-23 21:39] VITALS: BP 122/67; O2SAT 100
== END 2024-06-23 21:38 | disposition home or self-care (01) ==
LOC: ER 18:05
DX: R42 Dizziness and giddiness (principal); M25.511 Pain in right shoulder; M54.6 Pain in thoracic spine; I10 Essential (primary) hypertension; E11.9 Type 2 diabetes mellitus without complications; E78.5 Hyperlipidemia, unspecified
CPT/HCPCS: 70450; 71250; 74176; 81001; 99283; J1885

== ENCOUNTER 2024-07-19 12:52 | Inpatient (IN) | payer MEDICARE, OTHER ==
[~2024-07-19] VITALS: Ht 182.9 cm; Wt 90.7 kg
[2024-07-19 13:00] VITALS: TEMP 98.6
[2024-07-19 13:38] LABS: BASOPHILS % 0.5 % (0.0-1.0); EOSINOPHILS # (AUTO) 0.2 (0.0-0.4); EOSINOPHILS % 3.7 % (0.0-6.0); HEMATOCRIT 41.7 % (38.2-49.6); HEMOGLOBIN 13.4 g/dL (14.0-18.0); LYMPHOCYTES # (AUTO) 0.9 (1.0-3.2); LYMPHOCYTES % 13.6 % (18.0-39.1); MEAN CORPUSCULAR HEMOGLOBIN 29.1 pg (28-32); MEAN CORPUSCULAR HGB CONC 32.1 g/dL (31-35); MEAN CORPUSCULAR VOLUME 90.7 fL (81-99); MONOCYTES # (AUTO) 0.7 (0.2-0.8); MONOCYTES % 11.3 % (4.4-11.3); NEUTROPHILS # (AUTO) 4.6 (2.1-6.9); NEUTROPHILS % 70.7 % (38.7-80.0); PLATELET COUNT 142 x10e3/uL (140-360); RED CELL DISTRIBUTION WIDTH 14.3 % (11.7-14.4); WHITE BLOOD COUNT 6.45 x10e3/uL (4.8-10.8)
[2024-07-19] MEDS ORDERED: SODIUM CHLORIDE 0.9% 1000ML 1,000 ML ONE (13:53)
[2024-07-19] MEDS: SODIUM CHLORIDE 0.9% 1000ML 1,000 ML IV STA (14:00)
[2024-07-19] MEDS: ONDANSETRON HCL INJ 2MG/ML 2ML 2 MG/ML VIAL IV STA (14:00)
[2024-07-19 14:13] LABS: ALBUMIN 3.8 g/dL (3.5-5.0); ALBUMIN/GLOBULIN RATIO 1.1 (0.8-2.0); ANION GAP 15.3 mmol/L (8-16); BILIRUBIN,TOTAL 0.9 mg/dL (0.2-1.2); CALCIUM 8.8 mg/dL (8.4-10.2); CREATININE, SERUM 3.88 mg/dL (0.72-1.25); POTASSIUM 4.3 mmol/L (3.5-5.1); TOTAL PROTEIN 7.3 g/dL (6.5-8.1)
[2024-07-19 14:20] LABS: TROPONIN I 0.024 ng/mL (0-0.300)
[2024-07-19 15:43] LABS: BILIRUBIN,URINE NEGATIVE (NEGATIVE); CLARITY,URINE CLEAR (CLEAR); COLOR,URINE YELLOW (YELLOW); GLUCOSE, URINE NEGATIVE (NEGATIVE); KETONES,URINE NEGATIVE (NEGATIVE); LEUKOCYTE ESTERASE ,URINE NEGATIVE (NEGATIVE); NITRITE,URINE NEGATIVE (NEGATIVE); PH,URINE 5.5 (5 - 7); PROTEIN,URINE DIPSTICK NEGATIVE (NEGATIVE); URINE UROBILINOGEN 0.2 mg/dL (0.2 - 1)
[2024-07-19 15:54] LABS: RBC,URINE 0-5 /HPF (0-5); WBC,URINE (MAN) 0-5 /HPF (0-5)
[2024-07-19 15:59] VITALS: PULSE 86; RESP 18
[2024-07-19] MEDS: SODIUM CHLORIDE 0.9% 1000ML 1,000 ML IV ONE (16:00)
[2024-07-19 17:30] VITALS: BP 122/62; PULSE 91; RESP 18; TEMP 97.5; O2SAT 100
[2024-07-19 17:38] VITALS: BP 103/57; PULSE 89; RESP 18; TEMP 97.6; O2SAT 100
[2024-07-19] MEDS: SODIUM CHLORIDE 0.9% 1000ML 1,000 ML IV SCH (18:34)
[2024-07-19 20:00] VITALS: BP 115/56; PULSE 94; RESP 18; TEMP 97.5; O2SAT 99
[2024-07-19 23:20] VITALS: BP 115/56; PULSE 94; RESP 18; TEMP 97.5; O2SAT 99
[2024-07-19] MEDS ORDERED: TRULICITY3 MG/0.5 M IJ (23:31)
[2024-07-19] MEDS ORDERED: TOBRADEX ST EYE5 ML OS (23:36)
[2024-07-19] MEDS ORDERED: CICLOPIROX15 GM TOP (23:39)
[2024-07-19] MEDS ORDERED: FUROSEMIDE40 MG PO (23:51)
[2024-07-19] MEDS ORDERED: VENTOLIN HFA18 GM INH (23:52)
[2024-07-19] MEDS ORDERED: SYMBICORT 16010.2 GM INH (23:53)
[2024-07-19] MEDS ORDERED: ALBUTEROL2.5 MG/3 M NEB (23:54)
[2024-07-19] MEDS ORDERED: HUMULIN 70100 UNIT/1 SC (23:57)
[2024-07-20] VITALS (7 sets, daily range): BP systolic 110–135; BP diastolic 54–66; PULSE 81–99; RESP 18–23; TEMP 98–98.3; O2SAT 97–99
[2024-07-20 05:50] LABS: BASOPHILS % 0.2 % (0.0-1.0); EOSINOPHILS # (AUTO) 0.2 (0.0-0.4); EOSINOPHILS % 4.3 % (0.0-6.0); HEMATOCRIT 35.9 % (38.2-49.6); HEMOGLOBIN 11.5 g/dL (14.0-18.0); LYMPHOCYTES # (AUTO) 0.8 (1.0-3.2); LYMPHOCYTES % 15.4 % (18.0-39.1); MEAN CORPUSCULAR VOLUME 90.7 fL (81-99); MONOCYTES # (AUTO) 0.6 (0.2-0.8); MONOCYTES % 12.1 % (4.4-11.3); NEUTROPHILS # (AUTO) 3.3 (2.1-6.9); PLATELET COUNT 122 x10e3/uL (140-360); RED BLOOD COUNT 3.96 x10e6/uL (4.3-5.7); RED CELL DISTRIBUTION WIDTH 14.1 % (11.7-14.4); WHITE BLOOD COUNT 4.88 x10e3/uL (4.8-10.8)
[2024-07-20 06:17] LABS: ALBUMIN/GLOBULIN RATIO 1.1 (0.8-2.0); ANION GAP 13.2 mmol/L (8-16); BILIRUBIN,TOTAL 0.5 mg/dL (0.2-1.2); CALCIUM 8.3 mg/dL (8.4-10.2); CREATININE, SERUM 1.96 mg/dL (0.72-1.25); POTASSIUM 4.2 mmol/L (3.5-5.1); TOTAL PROTEIN 5.8 g/dL (6.5-8.1)
[2024-07-20 07:01] LABS: TROPONIN I 0.018 ng/mL (0-0.300)
[2024-07-20] MEDS ORDERED: TRAMADOL HCL 50 MG TAB PO PRN (10:30)
[2024-07-20] MEDS ORDERED: ONDANSETRON HCL INJ 2MG/ML 2ML 2 MG/ML VIAL IV PRN (10:30)
[2024-07-20] MEDS ORDERED: METHOCARBAMOL 500 MG TAB PO PRN (10:30)
[2024-07-20] MEDS ORDERED: DEXTROSE 50% SYRINGE 50 ML IV PRN (10:30)
[2024-07-20] MEDS: INSULIN LISPRO 100 UNIT/1 ML 3ML VIAL SQ SCH (11:28)
[2024-07-20] MEDS: ONDANSETRON HCL INJ 2MG/ML 2ML 2 MG/ML VIAL IV PRN (11:35)
[2024-07-20 15:22] LABS: TROPONIN I 0.019 ng/mL (0-0.300)
[2024-07-20] MEDS: TAMSULOSIN HCL 0.4 MG CAP PO SCH (16:53)
[2024-07-20] MEDS: GABAPENTIN 300 MG CAP PO SCH (16:53)
[2024-07-20] MEDS: METOPROLOL TARTRATE 50 MG TAB PO SCH (16:54)
[2024-07-20] MEDS: TOBRAMYCIN/DEXAMETHASONE(OPTH) 5 ML BTL OS SCH (17:42)
[2024-07-20] MEDS: SODIUM BICARBONATE 8.4% VIAL 50 ML in SODIUM CHLORIDE 0.45% 1,000 ML IV ONE (21:57)
[2024-07-20] MEDS: INSULIN GLARGINE 100 UNITS/ML VIAL SQ SCH (22:23)
[2024-07-21] VITALS (7 sets, daily range): BP systolic 120–147; BP diastolic 60–70; PULSE 78–91; RESP 17–20; TEMP 97.6–98.4; O2SAT 95–100
[2024-07-21 05:41] LABS: BASOPHILS % 0.4 % (0.0-1.0); EOSINOPHILS # (AUTO) 0.2 (0.0-0.4); EOSINOPHILS % 4.7 % (0.0-6.0); HEMATOCRIT 34.2 % (38.2-49.6); HEMOGLOBIN 11.6 g/dL (14.0-18.0); LYMPHOCYTES # (AUTO) 0.9 (1.0-3.2); LYMPHOCYTES % 18.6 % (18.0-39.1); MEAN CORPUSCULAR HEMOGLOBIN 29.2 pg (28-32); MEAN CORPUSCULAR HGB CONC 33.9 g/dL (31-35); MEAN CORPUSCULAR VOLUME 86.1 fL (81-99); MONOCYTES # (AUTO) 0.5 (0.2-0.8); MONOCYTES % 9.7 % (4.4-11.3); NEUTROPHILS # (AUTO) 3.3 (2.1-6.9); NEUTROPHILS % 66.4 % (38.7-80.0); PLATELET COUNT 120 x10e3/uL (140-360); RED BLOOD COUNT 3.97 x10e6/uL (4.3-5.7); WHITE BLOOD COUNT 4.94 x10e3/uL (4.8-10.8)
[2024-07-21 05:56] LABS: ABG HCO3 17 mmol/L (22-26); ABG PCO2 34 mmHg (35-45); ABG PH 7.32 (7.35-7.45); ABG PO2 49 mmHg (80-105); ABG TCO2 18
[2024-07-21 06:07] LABS: ANION GAP 11.7 mmol/L (8-16); CALCIUM 8.5 mg/dL (8.4-10.2); CREATININE, SERUM 1.16 mg/dL (0.72-1.25); POTASSIUM 3.7 mmol/L (3.5-5.1)
[2024-07-21] MEDS: NIFEDIPINE CR 30 MG TAB PO SCH (08:06)
[2024-07-21] MEDS: ACETAMINOPHEN 325 MG TAB PO PRN (08:07)
[2024-07-21] MEDS: SODIUM BICARBONATE 650 MG TAB PO SCH (17:23)
[2024-07-22 00:45] VITALS: BP 113/53; PULSE 75; RESP 18; TEMP 98.2; O2SAT 100
[2024-07-22 04:00] VITALS: BP 127/60; PULSE 83; RESP 17; TEMP 98.2; O2SAT 98
[2024-07-22 06:04] LABS: ANION GAP 11.8 mmol/L (8-16); CALCIUM 8.8 mg/dL (8.4-10.2); CREATININE, SERUM 1.14 mg/dL (0.72-1.25); POTASSIUM 3.8 mmol/L (3.5-5.1)
[2024-07-22 08:02] VITALS: BP 138/76; PULSE 90; RESP 19; TEMP 98.1; O2SAT 99
[2024-07-22 08:55] VITALS: BP 138/76; PULSE 90; RESP 19; TEMP 98.1; O2SAT 99
[2024-07-22 09:05] VITALS: BP 138/76; PULSE 90
== END 2024-07-22 10:07 | disposition home or self-care (01) | DRG 683 ==
LOC: ER 12:59 → ERHOLD 16:00 → MED/SURG2 17:15
PROVIDERS: ADMIT Internal Medicine; ATTEND Internal Medicine
PROC: 0T9B70Z Drainage of Bladder with Drainage Device, Via Natural or Artificial Opening (ICD-10-PCS; principal; 2024-07-19)
PROC: 4A133R1 Monitoring of Arterial Saturation, Peripheral, Percutaneous Approach (ICD-10-PCS; 2024-07-20)
DX: N17.9 Acute kidney failure, unspecified (principal); E87.20 Acidosis, unspecified; E11.9 Type 2 diabetes mellitus without complications; A05.9 Bacterial foodborne intoxication, unspecified; E86.0 Dehydration; K52.9 Noninfective gastroenteritis and colitis, unspecified; I10 Essential (primary) hypertension; E78.5 Hyperlipidemia, unspecified; Z79.4 Long term (current) use of insulin; Z79.84 Long term (current) use of oral hypoglycemic drugs; Z79.85 Long-term (current) use of injectable non-insulin antidiabetic drugs; Z79.51 Long term (current) use of inhaled steroids; Z79.52 Long term (current) use of systemic steroids; Z90.49 Acquired absence of other specified parts of digestive tract; Z91.041 Radiographic dye allergy status
CPT/HCPCS: 36415; 51700; 80048; 80053; 81001; 82550; 82805; 82948; 83036; 83735; 84484; 85025; 93005; 99284; J2405; J2470; J7030

== ENCOUNTER 2024-09-01 11:21 | Emergency (ER) | payer MEDICARE ==
[~2024-09-01] VITALS: Ht 182.9 cm; Wt 90.7 kg
[~2024-09-01 11:21] MED LIST changes: +ALBUTEROL2.5 MG/3 M NEB; +CICLOPIROX15 GM TOP; +FUROSEMIDE40 MG PO; +HUMULIN 70100 UNIT/1 SC; +SYMBICORT 16010.2 GM INH; +TOBRADEX ST EYE5 ML OS; +TRULICITY3 MG/0.5 M IJ; +VENTOLIN HFA18 GM INH
[2024-09-01 11:29] VITALS: TEMP 98.7
[2024-09-01] MEDS ORDERED: SODIUM CHLORIDE FLUSH 10 ML SYR IV PRN (11:45)
[2024-09-01 11:54] LABS: BASOPHILS % 0.4 % (0.0-1.0); EOSINOPHILS # (AUTO) 0.5 (0.0-0.4); EOSINOPHILS % 5.9 % (0.0-6.0); HEMATOCRIT 44.4 % (38.2-49.6); HEMOGLOBIN 13.5 g/dL (14.0-18.0); LYMPHOCYTES # (AUTO) 0.8 (1.0-3.2); MEAN CORPUSCULAR HEMOGLOBIN 28.8 pg (28-32); MEAN CORPUSCULAR HGB CONC 30.4 g/dL (31-35); MEAN CORPUSCULAR VOLUME 94.7 fL (81-99); MONOCYTES # (AUTO) 0.4 (0.2-0.8); MONOCYTES % 5.3 % (4.4-11.3); NEUTROPHILS # (AUTO) 6.5 (2.1-6.9); NEUTROPHILS % 78.2 % (38.7-80.0); PLATELET COUNT 139 x10e3/uL (140-360); RED BLOOD COUNT 4.69 x10e6/uL (4.3-5.7); RED CELL DISTRIBUTION WIDTH 14.4 % (11.7-14.4); WHITE BLOOD COUNT 8.28 x10e3/uL (4.8-10.8)
[2024-09-01] MEDS: METHYLPREDNISOLONE SOD SUCC 125 MG/2ML VIAL IV ONE (12:02)
[2024-09-01 12:16] LABS: ALBUMIN 3.7 g/dL (3.5-5.0); ALBUMIN/GLOBULIN RATIO 1.3 (0.8-2.0); ANION GAP 17.8 mmol/L (8-16); BILIRUBIN,TOTAL 0.6 mg/dL (0.2-1.2); CALCIUM 9.5 mg/dL (8.4-10.2); CREATININE, SERUM 1.52 mg/dL (0.72-1.25); POTASSIUM 4.8 mmol/L (3.5-5.1); TOTAL PROTEIN 6.6 g/dL (6.5-8.1)
[2024-09-01 12:22] LABS: TROPONIN I 0.008 ng/mL (0-0.300)
[2024-09-01] MEDS: SODIUM CHLORIDE 0.9% 1000ML 1,000 ML IV ONE (13:13)
[2024-09-01 13:18] VITALS: PULSE 79; RESP 18
[2024-09-01] MEDS ORDERED: PREDNISONE50 MG PO (14:04)
[2024-09-01 15:00] VITALS: BP 139/66; RESP 18; TEMP 98.7
[2024-09-01 15:06] VITALS: PULSE 83; O2SAT 99
== END 2024-09-01 15:23 | disposition home or self-care (01) ==
LOC: ER 11:28
DX: R06.02 Shortness of breath (principal); E11.65 Type 2 diabetes mellitus with hyperglycemia; I10 Essential (primary) hypertension; J45.909 Unspecified asthma, uncomplicated
CPT/HCPCS: 36415; 71046; 80053; 83880; 84484; 85025; 94760; 99284; J2919; J7030; 93005